=== PATIENT | female | born 1950 | race African-American/Black ===

== ENCOUNTER 2020-02-07 20:26 | Emergency (ER) | payer BC, MEDICARE ==
[~2020-02-07] VITALS: Ht 167.6 cm; Wt 83.0 kg
[~2020-02-07 20:26] MED LIST: COSOPT; QUINAPRIL; [UNRECOGNIZED DRUG - OTHER]
[2020-02-07] MEDS ORDERED: IBUPROFEN 600MG TABLET PO ONE (22:45)
[2020-02-08 01:30] VITALS: BP 131/77
== END 2020-02-08 01:32 | disposition home or self-care (01) ==
LOC: ER 20:26
DX: S50.02XA Contusion of left elbow, initial encounter (principal); M25.561 Pain in right knee; W01.0XXA Fall on same level from slipping, tripping and stumbling without subsequent striking against object, initial encounter; Y93.89 Activity, other specified; Y92.89 Other specified places as the place of occurrence of the external cause; Y99.8 Other external cause status; I10 Essential (primary) hypertension; H40.9 Unspecified glaucoma; Z90.710 Acquired absence of both cervix and uterus
CPT/HCPCS: 73080; 73560; 99284; L1830